=== PATIENT | female | born 1965 | race Caucasian/White ===

== ENCOUNTER → 2017-05-31 | Outpatient (CLI) | payer BC ==
--- NOTE | 2017-05-31 11:14 | WWHP ---
[facility] - HISTORY AND PHYSICAL DATE OF DICTATION: 05/31/2017 CHIEF COMPLAINT: The patient is here for her routine gynecologic exam and mammogram. HPI: This is a 51-year-old G 4, P-3-0-1-3 with an LMP of 04/2016. The patient states she does have mild hot flashes that are not very bothersome. She is without gynecologic complaints and denies any vaginal bleeding for more than 1 year. PAST MEDICAL HISTORY: Unremarkable. MEDICATIONS: Multivitamin daily. ALLERGIES: AMOXICILLIN, KEFLEX, ERYTHROMYCIN AND CODEINE. PAST SURGICAL HISTORY: Tonsillectomy as a child, perineoplasty in 1997 and D and C in 2010. 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 SOCIAL HISTORY: She denies tobacco and drug use and has 0 to 1 alcohol-containing drinks per year. 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 FAMILY HISTORY: Both parents and brother have hypertension. Mother also has osteoporosis and hypothyroidism. Grandfather had an AL and skin cancer. REVIEW OF SYSTEMS: She has lost about 4 pounds over the last 2 years. She denies respiratory, cardiac or GI problems. PHYSICAL EXAM: Blood pressure 106/71, height 5 feet 3 inches, weight 123 pounds, BMI 22. Temperature 98.1, pulse 71. This is a well-developed, well-nourished, white female, who is alert and oriented x3, in no acute distress. HEENT: Within normal limits. NECK: Supple without mass or thyromegaly. Chest and LUNGS: Clear to auscultation. HEART: Regular rate and rhythm. Breasts are without mass or discharge. Axillary exam is negative for adenopathy. Back negative for CVA tenderness. ABDOMEN: Soft, nontender, without palpable masses. Pelvic exam normal external genitalia with minimal atrophy. Cervix and vagina reveals minimal atrophy without lesions. There is no evidence of prolapse. The uterus is mid position nongravid size and nontender. There are no palpable adnexal masses or tenderness. Rectovaginal exam is negative for mass or tenderness and is negative for occult blood. Extremities nontender. IMPRESSION: 51-year-old menopausal female with normal gynecologic exam. PLAN: 1. Pap smear was deferred since she had a normal Pap smear less than 2 years ago. 2. Self breast examination was discussed. 3. Screening mammogram will be done today. 4. Osteoporosis prevention was discussed. 5. I have recommended that she have a screening colonoscopy and she states she will have this done at [facility]. 6. She will return in 1 year. MONIQUE / ANGIE: [id number] /
--- NOTE | 2017-06-01 10:28 | MM ---
Reason for exam: screening (asymptomatic). Last mammogram was performed 1 year and 10 months ago. History: Patient had first child at age 32. Took hormonal contraceptives for 1 year beginning at age 31. Physical Findings: A clinical breast exam by your physician is recommended on an annual basis and results should be correlated with mammographic findings. MG Screening Mammo w CAD Bilateral CC, MLO, and XCCL view(s) were taken. Prior study comparison: August 06, 2015, right breast MG work up mamm w CAD RT. July 29, 2015, bilateral MG screening mammo w CAD. The breast tissue is heterogeneously dense. This may lower the sensitivity of mammography. There is no discrete abnormality. No significant changes when compared with prior studies. ASSESSMENT: Negative, BI-RAD 1 RECOMMENDATION: Routine screening mammogram of both breasts in 1 year.
== END | disposition home or self-care (01) ==
LOC: WWCWWP 08:36
PROVIDERS: ATTEND Obstetrics & Gynecology
DX: Z12.31 Encounter for screening mammogram for malignant neoplasm of breast (principal)
CPT/HCPCS: 77067

== ENCOUNTER → 2019-10-29 | Outpatient (CLI) | payer BC ==
[2019-10-29 12:40] VITALS: BP 100/67; PULSE 87; RESP 18; TEMP 98.5
--- NOTE | 2019-10-29 13:24 | P.HPOB ---
History of Present Illness H&P Date: 10/29/19 Chief Complaint: The patient is here for her routine gynecologic exam and ma mmogram. This is a 53-year-old with an LMP of 2016. The patient is without gynecologic complaints and denies any postmenopausal bleeding. Hot flashes are minimal. Review of Systems She has gained about 13 pounds over the past 2-1/2 years. She states it has been difficult losing weight. She denies respiratory, cardiac, or GI problems. Past Medical History Past Medical History: No Reported History Additional Past Medical History / Comment(s): PAST CHIEF MAINTENANCE SUPERVISOR HISTORY: She has no history of STDs. History of Any Multi-Drug Resistant Organisms: None Reported Past Surgical History: Orthopedic Surgery Additional Past Surgical History / Comment(s): Right knee meniscus surgery 2019. Colonoscopy 2018 with polyp removal(next after 5yr). 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 - Past Family History Mother Family Medical History: Diabetes Mellitus, Hypertension, Thyroid Disorder Additional Family Medical History / Comment(s): Osteoporosis and hypothyroidism. Brother(s) Family Medical History: Hypertension Grandfather Family Medical History: Cancer, Myocardial Infarction ([place]) Additional Family Medical History / Comment(s): Skin cancer. Daughter(s) Additional Family Medical History / Comment(s): tri-neurodevelopmental delay involving chromosome 5. Medications and Allergies Home Medications Medication Instructions Recorded Confirmed Type Calcium Carb/Vitamin D3/Vit K1 1 tab PO DAILY 10/29/19 10/29/19 History [Viactiv 650 mg-12.5 Mcg Chew] Multivit-Min/FA/Lycopen/Lutein 1 tab PO DAILY 10/29/19 10/29/19 History [Centrum Silver Tablet] Allergies Allergy/AdvReac Type Severity Reaction Status Date / Time amoxicillin Allergy Rash/Hives Unverified 10/29/19 12:31 codeine Allergy Confusion Unverified 10/29/19 12:31 erythromycin base Allergy Nausea & Unverified 10/29/19 12:31 Vomiting Exam Vital Signs Temp Pulse Resp BP Pulse Ox 10/29/19 12:33 98.5 F 87 18 100/67 96 Intake and Output 10/28/19 10/29/19 10/29/19 22:59 06:59 14:59 Other: Weight 61.689 kg Height 5 feet 3 inches, weight 136 pounds, BMI 24.1. This is a well-developed well-nourished white female who is alert and oriented times 3 in no acute distress. HEENT: Within normal limits. NECK: Supple without mass or thyromegaly. CHEST AND LUNGS: Clear to auscultation. HEART: Regular rate and rhythm. BREASTS: Are without mass or discharge. AXILLARY EXAM: Negative for adenopathy. BACK: Negative for CVA tenderness. ABDOMEN: Soft, nontender, without palpable masses. PELVIC EXAM: Normal external genitalia with minimal atrophy. Cervix and vagina appear normal with mild atrophy. The cervix is slightly stenotic secondary to atrophy. There is no unusual discharge. There is no evidence of prolapse. The uterus is midposition, slightly retroverted, nongravid size and nontender. There are no palpable adnexal masses or tenderness. RECTAL EXAM: Rectovaginal exam is negative for mass or tenderness and is negative for occult blood. EXTREMITIES: Nontender. IMPRESSION: 1. 53-year-old menopausal female with normal gynecologic exam. PLAN: 1. Pap smear was performed. 2. Self breast awareness was discussed with the patient. 3. Screening mammogram will be done today. 4. Osteoporosis prevention was discussed. I have stressed the importance of adequate calcium, vitamin D and regular exercise. Recommended amounts of calcium and vitamin D were also discussed. Since her mother had osteoporosis, we will plan on doing a baseline bone density test at age 55. 5. Weight control was discussed. It is quite natural to gained a few pounds after the menopausal change. I have stressed the importance of good nutrition and regular exercise. 6. She was advised to return in one year for her annual well woman exam.
--- NOTE | 2019-10-31 09:09 | MM ---
Reason for exam: screening (asymptomatic). Last mammogram was performed 2 years and 5 months ago. History: Patient is postmenopausal and had first child at age 32. Took hormonal contraceptives for 1 year beginning at age 31. Physical Findings: A clinical breast exam by your physician is recommended on an annual basis and results should be correlated with mammographic findings. MG Screening Mammo w CAD Bilateral CC and MLO view(s) were taken. Prior study comparison: May 31, 2017, bilateral MG screening mammo w CAD. August 06, 2015, right breast MG work up mamm w CAD RT. The breast tissue is heterogeneously dense. This may lower the sensitivity of mammography. No significant changes when compared with prior studies. ASSESSMENT: Negative, BI-RAD 1 RECOMMENDATION: Routine screening mammogram of both breasts in 1 year.
--- NOTE | 2019-11-05 17:42 | P.PN ---
Progress Note - Text Progress Note Date: 11/05/19 OUTPATIENT FOLLOW-UP NOTE TEST(S)/RESULTS: test results from 10/29/2019 include negative Pap smear and benign mammogram. METHOD OF NOTIFICATION: a message with these results was left on the patient's voice mail. PATIENT COMMENTS: DIAGNOSIS: negative Pap smear and benign mammogram. DISCUSSION: PLAN: the patient is to return in one year for her annual well woman exam.
== END | disposition home or self-care (01) ==
LOC: WWCWWP 12:23
PROVIDERS: ATTEND Obstetrics & Gynecology
DX: Z12.31 Encounter for screening mammogram for malignant neoplasm of breast (principal)
CPT/HCPCS: 77067

== ENCOUNTER → 2020-12-10 | Outpatient (CLI) | payer BC | END | disposition home or self-care (01) | LOC: LABWHC1 09:38 | PROVIDERS: ATTEND Nurse Practitioner Women's Health | DX: Z01.810 Encounter for preprocedural cardiovascular examination (principal) | CPT/HCPCS: 36415; 93005 ==

== ENCOUNTER → 2021-02-02 | Outpatient (CLI) | payer BC ==
--- NOTE | 2021-02-02 10:53 | BD ---
EXAMINATION TYPE: Axial Bone Density DATE OF EXAM: 02/02/2021 COMPARISON: NONE CLINICAL HISTORY: Postmenopausal screening Height: 62.2 IN Weight: 132 LBS RISK FACTORS HISTORY OF: Family History of Osteoporosis: YES MOTHER Active: YES Postmenopausal woman: AGE 50 MEDICATIONS: Additional Medications: CALCIUM, VIT D, MULTI VIT EXAM MEASUREMENTS: Bone mineral densitometry was performed using the [employer] System. Bone mineral density as measured about the Lumbar spine is: ----- L1-L4(G/cm2): 1.105 T Score Values are as follows: ----- L2: -1.0 ----- L3: -0.8 ----- L4: -0.7 ----- L1-L4: -0.6 Bone mineral density BASELINE Bone mineral density about the R hip (g/cm2): 0.810 Bone mineral density about the L hip (g/cm2): 0.801 T Score values are as follows: -----R Neck: -1.6 -----L Neck: -1.7 -----R Total: -1.6 -----L Total: -1.4 Bone mineral density BASELINE IMPRESSION: Osteopenia (T Score between -2.5 and -1). There is slightly increased risk of fracture and the patient may be considered for treatment. Re-Screen 2-5 years. NOTE: T-SCORE=SD OF THE YOUNG ADULT MEAN.
--- NOTE | 2021-02-03 09:41 | MM ---
Reason for exam: screening (asymptomatic). Last mammogram was performed 1 year and 3 months ago. History: Patient is postmenopausal and had first child at age 32. Took hormonal contraceptives for 1 year beginning at age 31. Physical Findings: A clinical breast exam by your physician is recommended on an annual basis and results should be correlated with mammographic findings. MG Screening Mammo w CAD Bilateral CC, MLO, and XCCL view(s) were taken. Prior study comparison: October 29, 2019, bilateral MG screening mammo w CAD. May 31, 2017, bilateral MG screening mammo w CAD. The breast tissue is heterogeneously dense. This may lower the sensitivity of mammography. There is no discrete abnormality. No significant changes when compared with prior studies. ASSESSMENT: Benign, BI-RAD 2 RECOMMENDATION: Routine screening mammogram of both breasts in 1 year.
== END | disposition home or self-care (01) ==
LOC: RADMAMWWP 07:45
PROVIDERS: ATTEND Family Medicine
DX: Z12.31 Encounter for screening mammogram for malignant neoplasm of breast (principal); N95.1 Menopausal and female climacteric states; M85.80 Other specified disorders of bone density and structure, unspecified site
CPT/HCPCS: 77067; 77080

== ENCOUNTER → 2021-10-05 | Outpatient (CLI) | payer BC ==
[2021-10-05 15:21] VITALS: BP 113/72; PULSE 77; RESP 16; TEMP 98.2
--- NOTE | 2021-10-05 16:30 | P.HPOB ---
History of Present Illness H&P Date: 10/05/21 Chief Complaint: The patient is here for her routine gynecologic exam. This is a 55-year-old 013 with an LMP of 2016. The patient is without gynecologic complaints. Review of Systems The patient has lost 17 pounds over the last year. She denies respiratory, cardiac, or G.I. problems. She states she has some post-Covid residual symptoms including taste and smell loss and sometimes feels she is not as mentally as sharp. Past Medical History Past Medical History: No Reported History Additional Past Medical History / Comment(s): Osteopenia. 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 History of Any Multi-Drug Resistant Organisms: None Reported Past Surgical History: Orthopedic Surgery Additional Past Surgical History / Comment(s): Right knee meniscus surgery 2019. Colonoscopy 2018 with polyp removal(next after 5yr). 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 - Past Family History Mother Family Medical History: Diabetes Mellitus, Hypertension, Thyroid Disorder Additional Family Medical History / Comment(s): Osteoporosis and hypothyroidism. Brother(s) Family Medical History: Hypertension Daughter(s) Additional Family Medical History / Comment(s): tri-neurodevelopmental delay involving chromosome 5. Grandfather Family Medical History: Cancer, Myocardial Infarction ([place]) Additional Family Medical History / Comment(s): Skin cancer. Medications and Allergies Home Medications Medication Instructions Recorded Confirmed Type Calcium Carb/Vitamin D3/Vit K1 1 tab PO DAILY 10/29/19 10/05/21 History [Viactiv 650 mg-12.5 Mcg Chew] Multivit-Min/FA/Lycopen/Lutein 1 tab PO DAILY 10/29/19 10/05/21 History [Centrum Silver Tablet] Glucosamine/MSM/Chrond/D3/Bosw 1 tab PO DAILY 10/05/21 10/05/21 History [[id number]-Ydl D3 Cplt] Allergies Allergy/AdvReac Type Severity Reaction Status Date / Time amoxicillin Allergy Rash/Hives Unverified 10/05/21 15:16 codeine Allergy Confusion Unverified 10/05/21 15:16 erythromycin base Allergy Nausea & Unverified 10/05/21 15:16 Vomiting Exam Vital Signs Temp Pulse Resp BP Pulse Ox 10/05/21 15:19 98.2 F 77 16 113/72 99 Intake and Output 10/05/21 10/05/21 10/05/21 06:59 14:59 22:59 Other: Weight 53.977 kg Height 5 feet 3 inches, weight 119 pounds, BMI 21.1. This is a well-developed well-nourished white female who is alert and oriented times 3 in no acute distress. HEENT: Within normal limits. NECK: Supple without mass or thyromegaly. CHEST AND LUNGS: Clear to auscultation. HEART: Regular rate and rhythm. BREASTS: Are without mass or discharge. AXILLARY EXAM: Negative for adenopathy. BACK: Negative for CVA tenderness. ABDOMEN: Soft, nontender, without palpable masses. PELVIC EXAM: Normal external genitalia with mild atrophy. Cervix and vagina appear normal with mild atrophy. There is no unusual discharge. There is no evidence of prolapse. The uterus is midposition, nongravid size and nontender. There are no palpable adnexal masses or tenderness. RECTAL EXAM: Rectovaginal exam is negative for mass or tenderness and is negative for occult blood. EXTREMITIES: Nontender. IMPRESSION: 1. 55-year-old menopausal female with normal gynecologic exam. 2. History of osteopenia. PLAN: 1. Pap smear was deferred since she had a normal Pap smear on 10/29/2019. 2. Self breast awareness was discussed with the patient. We have also discussed symptoms associated with inflammatory breast cancer. 3. Screening mammogram will be due around January 2022 and the order slip was given to the patient for this. 4. Osteoporosis prevention was discussed. I have stressed the importance of adequate calcium, vitamin D and regular exercise. Recommended amounts of calcium and vitamin D were also discussed. We will plan on repeating bone density testing in approximately 2-3 years. Her last bone density test was done on 01/25/2021. 5. She did receive a Covid vaccination 2. She also had Covid in 2019. 6. She was advised to return in one year for her annual well woman exam.
== END | disposition home or self-care (01) ==
LOC: WWCWWP 15:05
PROVIDERS: ATTEND Obstetrics & Gynecology
DX: Z53.9 Procedure and treatment not carried out, unspecified reason (principal)

== ENCOUNTER → 2022-05-19 | Outpatient (CLI) | payer BC ==
--- NOTE | 2022-05-20 08:56 | MM ---
Reason for Exam: Screening (asymptomatic). Last mammogram was performed 1 year(s) and 4 month(s) ago. Patient History: Menarche at age 12. First Full-Term at age 32. Late child-bearing (after 30). Postmenopausal. Patient has history of breast feeding. Hormonal Contraceptives for 1 year from age 31 until age 32. Risk Values: Jeannine 5 year model risk: 1.7%. NCI Lifetime model risk: 10.9%. Prior Study Comparison: 07/29/2015 Bilateral Screening Mammogram, [facility]. 08/06/2015 Right Diagnostic Mammogram, [facility]. 05/31/2017 Bilateral Screening Mammogram, [facility]. 10/29/2019 Bilateral Screening Mammogram, [facility]. 02/02/2021 Bilateral Screening Mammogram, [facility]. Tissue Density: The breast tissue is heterogeneously dense. This may lower the sensitivity of mammography. Findings: Analyzed By CAD. There is no suspicious group of microcalcifications or new suspicious mass in either breast. Overall Assessment: Negative, BI-RAD 1 Management: Screening Mammogram of both breasts in 1 year. A clinical breast exam by your physician is recommended on an annual basis and results should be correlated with mammographic findings. Electronically signed and approved by: Man Pierson D.O.
== END | disposition home or self-care (01) ==
LOC: RADMAMWWP 09:38
PROVIDERS: ATTEND Obstetrics & Gynecology
DX: Z12.31 Encounter for screening mammogram for malignant neoplasm of breast (principal); Z78.0 Asymptomatic menopausal state
CPT/HCPCS: 77067